=== PATIENT | male | born 1970 | race African-American/Black ===

== ENCOUNTER 2021-09-21 14:03 | Emergency (ER) | payer MEDICAID ==
[~2021-09-21] VITALS: Ht 185.4 cm; Wt 90.0 kg
[2021-09-21 14:06] VITALS: BP 103/76
== END 2021-09-21 16:30 | disposition left against medical advice (07) ==
LOC: EDUNIT# 14:03 → EMS 14:03
DX: R06.02 Shortness of breath (principal); Z53.21 Procedure and treatment not carried out due to patient leaving prior to being seen by health care provider